=== PATIENT | male | born 1990 | race Caucasian/White ===

== ENCOUNTER 2017-03-23 16:34 | Emergency (ER) | payer OTHER | END 2017-03-23 17:30 | disposition home or self-care (01) | LOC: ER1 16:34 | DX: J02.9 Acute pharyngitis, unspecified (principal) | CPT/HCPCS: 87081; 87880; 99283 ==

== ENCOUNTER 2017-03-26 11:57 | Emergency (ER) | payer OTHER | END 2017-03-26 13:30 | disposition home or self-care (01) | LOC: ER1 11:57 | DX: J02.9 Acute pharyngitis, unspecified (principal); F17.210 Nicotine dependence, cigarettes, uncomplicated | CPT/HCPCS: 99282 ==

== ENCOUNTER 2017-04-01 14:00 | Emergency (ER) | payer OTHER | END 2017-04-01 15:29 | disposition home or self-care (01) | LOC: ER1 14:00 | DX: J06.9 Acute upper respiratory infection, unspecified (principal); B34.9 Viral infection, unspecified | CPT/HCPCS: 87081; 87880; 99283 ==

== ENCOUNTER 2021-10-16 05:20 | Emergency (ER) | payer OTHER ==
[~2021-10-16 05:20] MED LIST: FLAGYL500 MG PO; NAPROSYN500 MG PO
== END 2021-10-16 06:54 | disposition home or self-care (01) ==
LOC: ER1 05:20
DX: J02.9 Acute pharyngitis, unspecified (principal); Z20.822 Contact with and (suspected) exposure to COVID-19
CPT/HCPCS: 0240U; 87081; 87880; 99283

== ENCOUNTER 2021-10-18 22:15 | Emergency (ER) | payer OTHER ==
[2021-10-19] MEDS ORDERED: EXPECTORANT200 MG PO (00:48)
[2021-10-19] MEDS ORDERED: LODINE CAP 300300 MG PO (00:48)
[2021-10-19] MEDS ORDERED: BENZONATATE100 MG PO (00:48)
[2021-10-19] MEDS ORDERED: ZYRTEC10 M3 PO (00:48)
[2021-10-19] MEDS ORDERED: PROVENTIL HFA6.7 GM INH (00:48)
== END 2021-10-19 00:52 | disposition home or self-care (01) ==
LOC: ER1 22:15
DX: J02.9 Acute pharyngitis, unspecified (principal); R07.9 Chest pain, unspecified; Z20.822 Contact with and (suspected) exposure to COVID-19
CPT/HCPCS: 0240U; 71045; 87081; 87880; 93005; 99285

== ENCOUNTER 2021-11-09 14:06 | Emergency (ER) | payer OTHER ==
[~2021-11-09 14:06] MED LIST changes: +BENZONATATE100 MG PO; +EXPECTORANT200 MG PO; +LODINE CAP 300300 MG PO; +PROVENTIL HFA6.7 GM INH; +ZYRTEC10 M3 PO
== END 2021-11-09 17:34 | disposition home or self-care (01) ==
LOC: ER1 14:06
DX: U07.1 COVID-19 (principal); J02.8 Acute pharyngitis due to other specified organisms
CPT/HCPCS: 87081; 87880; 99283; U0002

== ENCOUNTER 2022-04-28 22:38 | Emergency (ER) | payer OTHER ==
[~2022-04-28 22:38] MED LIST changes: +CIPRO500 MG PO; +FLAGYL 250 MG250 MG PO
[2022-04-28 23:22] LABS: HEMOGLOBIN 15.8 gm/dl (14.0-17.5); RED BLOOD COUNT 5.01 M/UL (4.20-5.50); WHITE BLOOD COUNT 11.7 K/UL (4.5-11.0)
[2022-04-28 23:43] LABS: BUN/CREATININE RATIO 10 (0-10)
== END 2022-04-28 23:36 | disposition left against medical advice (07) ==
LOC: ER1 22:38
DX: R11.0 Nausea (principal); R19.7 Diarrhea, unspecified
CPT/HCPCS: 80053; 83690; 85025; 99281

== ENCOUNTER 2022-05-11 08:06 | Observation (INO) | payer OTHER ==
[~2022-05-11] VITALS: Ht 175.3 cm; Wt 81.6 kg
[2022-05-11 09:07] LABS: HEMOGLOBIN 15.9 gm/dl (14.0-17.5); RED BLOOD COUNT 5.21 M/UL (4.20-5.50); WHITE BLOOD COUNT 13.3 K/UL (4.5-11.0)
[2022-05-11 09:15] LABS: BUN/CREATININE RATIO 18 (0-10)
[2022-05-11 11:09] LABS: ADENOVIRUS F 40/41 Not Detected (Negative); ASTROVIRUS Not Detected (Negative); CRYPTOSPORIDIUM Not Detected (Negative); E.COLI 0157 Not Detected (Negative); ENTAMOEBA HISTOLYTICA Not Detected (Negative); ENTEROAGGREGATIVE E.COLI (EAEC Not Detected (Negative); ENTEROPATHOGENIC E.COLI (EPEC) Not Detected (Negative); ENTEROTOXIGENIC E.COLI (ETEC) Not Detected (Negative); GIARDIA LAMBLIA Not Detected (Negative); NOROVIRUS GI/GII Not Detected (Negative); PLESIOMONAS SHIGELLOIDES Not Detected (Negative); ROTOVIRUS A Not Detected (Negative); SALMONELLA Not Detected (Negative); SAPOVIRUS Not Detected (Negative); SHIG/ENTEROINVAS.ECOLI (EIEC) Not Detected (Negative); SHIGA-LIK TOX.PRO.E.COLI (STEC Not Detected (Negative); VIBRIO Not Detected (Negative); VIBRIO CHOLERAE Not Detected (Negative); YERSINIA ENTEROCOLITICA Not Detected (Negative)
[2022-05-11 12:31] LABS: CAMPYLOBACTER DETECTED (Negative); CLOSTRIDIUM DIFFICILE TOX A/B Not Detected (Negative)
[2022-05-12 06:52] LABS: RED BLOOD COUNT 4.71 M/UL (4.20-5.50); WHITE BLOOD COUNT 7.4 K/UL (4.5-11.0)
[2022-05-12] MEDS ORDERED: ZITHROMAX500 MG PO (11:11)
--- NOTE | 2022-05-12 11:27 | NUR ---
i was called in to come to work today. meds and assessment late
[2022-05-12 14:39] LABS: BUN/CREATININE RATIO 10 (0-10)
[2022-05-13 07:35] LABS: BUN/CREATININE RATIO 12 (0-10)
== END 2022-05-13 12:59 | disposition home or self-care (01) ==
LOC: ER1 08:06 → CDU 13:21 → MED SURG 4 13:21
PROVIDERS: Physician Assistant; Physician Assistant Medical; ADMIT Internal Medicine
DX: A04.5 Campylobacter enteritis (principal); R19.7 Diarrhea, unspecified; I10 Essential (primary) hypertension; D72.829 Elevated white blood cell count, unspecified; F17.210 Nicotine dependence, cigarettes, uncomplicated
CPT/HCPCS: 36415; 80048; 80053; 81001; 82150; 82272; 83605; 83690; 83735; 85025; 85027; 87040; 87507; C9113; G0378; J0456; J1170; J2270; J2405; J2543; J7030; Q9967